=== PATIENT | male | born 2000 | race Hispanic/Latino ===

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

== ENCOUNTER 2021-05-07 17:55 | Emergency (ER) | payer OTHER ==
[~2021-05-07] VITALS: Ht 182.9 cm; Wt 115.0 kg
[2021-05-07 19:21] VITALS: BP 136/63
== END 2021-05-07 19:21 | disposition home or self-care (01) ==
LOC: ED 17:55
DX: U07.1 COVID-19 (principal); I10 Essential (primary) hypertension

== ENCOUNTER 2023-02-04 11:42 | Emergency (ER) | payer SELFPAY ==
[2023-02-04] VITALS (8 sets, daily range): BP systolic 135–155; BP diastolic 84–102
[~2023-02-04] VITALS: Ht 182.9 cm; Wt 198.0 kg
[2023-02-04 13:28] LABS: URINE BILIRUBIN - DIPSTICK NEGATIVE (NEGATIVE); URINE BLOOD DIPSTICK NEGATIVE (NEGATIVE); URINE COLOR YELLOW; URINE GLUCOSE - DIPSTICK NEGATIVE (NEGATIVE); URINE KETONE NEGATIVE (NEGATIVE); URINE LEUK ESTERASE NEGATIVE (NEGATIVE); URINE PROTEIN - DIPSTICK NEGATIVE (NEG-TRACE); URINE UROBILINOGEN - DIPSTICK 0.2 E.U./dL (0.2)
[2023-02-04 13:32] LABS: URINE NITRITE - DIPSTICK NEGATIVE (Negative)
[2023-02-04] MEDS ORDERED: NAPROXEN500 MG PO (14:18)
== END 2023-02-04 14:27 | disposition home or self-care (01) | DRG 556 ==
LOC: ED 11:42
PROVIDERS: Family Medicine
DX: M62.838 Other muscle spasm (principal); I10 Essential (primary) hypertension